=== PATIENT | female | born 1950 | race Caucasian/White ===

== ENCOUNTER → 2017-07-26 | Outpatient (CLI) | payer MEDICARE, OTHER ==
[~2017-07-26] MED LIST: ASPI-482 PO; CELE200C PO; CRESTOR10 MG PO; METF500T5 PO; MONT10TA6 PO; OMEP10CA PO; VITAMIN B
--- NOTE | 2017-07-26 14:41 | NUR ---
IV started per order for nuclear med stress test. 20g Left AC. Joey GRIFFIN
== END | disposition home or self-care (01) ==
LOC: OPS 13:47
PROVIDERS: ATTEND Internal Medicine Cardiovascular Disease
DX: Z45.2 Encounter for adjustment and management of vascular access device (principal)
CPT/HCPCS: 36592